=== PATIENT | female | born 1965 | race Caucasian/White ===

== ENCOUNTER → 2016-09-24 13:25 | Outpatient (CLI) | payer MEDICARE | END | disposition home or self-care (01) | LOC: D.US 13:00 | DX: D64.9 Anemia, unspecified (principal); C50.319 Malignant neoplasm of lower-inner quadrant of unspecified female breast ==

== ENCOUNTER → 2018-11-17 08:21 | Outpatient (CLI) | payer MEDICARE ==
--- NOTE | 2018-11-19 09:24 | EC ---
PATIENT:SON MATIAS DATE OF SERVICE: 11/17/18 SEX: F MEDICAL RECORD: [id number] DATE OF : 63 LOCATION:D[facility] AGE OF PATIENT: 53 ADMISSION DATE: 11/17/18 REFERRING PHYSICIAN: INTERPRETING PHYSICIAN: HARJIT HOUSER MD ECHOCARDIOGRAM REPORT ECHO CHARGES 4 ECHO COMPLETE Date: 11/17/18 CLINICAL DIAGNOSIS: MURMUR ECHOCARDIOGRAPHIC MEASUREMENTS (adult normal given) AC root (d.<3.7cm) 2.5 cm LV Septum d (<1.2 cm> 1.4 cm Valve Excursion 1.2 cm LV Septum (systole) 1.5 cm Left Atria (s.<4.0cm> 3.3 cm LVPW d(<1.2cm) 1.4 cm RV (d.<2.3cm) 3.5 cm LVPW (sytole) 1.7 cm LV diastole(<5.6CM) 4.5 cm MV E-F(>70mm/sec) cm LV systole 3.2 cm LVOT Diameter 1.8 cm MV exc.(>10mm) 1.7 cm Est.ejection fraction (50-75%) % DOPPLER: LVIT cm/sec A 84.0 cm/sec E 76.0 cm/sec LA cm/sec RVSP 18 mmHg LVOT 88 cm/sec AOP1/2T m/s Asc. Ao 109 cm/sec RVOT 53 cm/sec RA cm/sec PA 76 cm/sec AV Gradient Peak 4.78 mmHg AV Mean 2.61 mmHg AV Area 2.2 cm MV Gradient Peak 3.71 mmHg MV Mean 1.10 mmHg MV Area cm COMMENTS: Toll Line Repairer: 2 JOSH LA Medical Records Manager: 3 Dr. Beltran TAPE# PACS Pericardial Effusion N DATE OF SERVICE: 11/17/2018 Mild LVH. LV internal dimension is normal. Wall motion is normal. EF is greater than or equal to 55%. Aortic valve is tricuspid. No evidence of stenosis by Doppler interrogation. Left atrium is normal. Mitral valve shows no prolapse. Trace MR. Right-sided chambers are grossly normal. Trace TR. TRANSINT:[id number] Voice Confirmation ID: [id number] DOCUMENT ID: [id number] ECHOCARDIOGRAM REPORT [id number] SON MATIAS HARJIT HOUSER MD at 0924 CC: [id number] DICTATION DATE: 11/18/18 1009 CLINICAL DOCUMENTATION IMPROVEMENT SPECIALIST: 11/18/18 1104 DEP CLI 11/17/18 [id number] [place] [address]
--- NOTE | 2018-11-21 12:04 | ST ---
PATIENT:SON MATIAS MEDICAL RECORD: [id number] SEX: F LOCATION:[facility] ORDER #: ADMISSION DATE: 11/17/18 AGE OF PATIENT: 53 REFERRING PHYSICIAN: INTERPRETING PHYSICIAN: JANICE KIM MD DATE OF SERVICE: 11/17/2018 PROCEDURE: Nuclear stress test. INDICATION: Angina, abnormal ECG, palpitation. TECHNIQUE: She was exercised on standard Damir protocol for 8 minutes achieving greater than 85% max target heart rate response with 33 mCi of sestamibi injected at peak stress, 11 mCi used previously for rest images. FINDINGS: Gated SPECT was not performed secondary to technical difficulties. OVERALL IMPRESSION: This is a normal nuclear stress test with no evidence of inducible ischemia or previous infarction. TRANSINT:[id number] Voice Confirmation ID: [id number] DOCUMENT ID: [id number] JANICE KIM MD at 1204 CC: [id number] DICTATION DATE: 11/20/18 1152 CAR SHIFTER: 11/20/18 2302 DEP CLI 11/17/18 [id number] [place] [address]
== END | disposition home or self-care (01) ==
LOC: D.HCCARDIO 08:21
PROVIDERS: ATTEND Internal Medicine Interventional Cardiology
DX: I20.9 Angina pectoris, unspecified (principal)

== ENCOUNTER → 2019-12-19 13:27 | Outpatient (CLI) | payer MEDICARE ==
--- NOTE | ~2019-12-19 | EC ---
PATIENT:SON MATIAS DATE OF SERVICE: 12/19/19 SEX: F MEDICAL RECORD: [id number] DATE OF : 63 LOCATION:D.[facility] AGE OF PATIENT: 54 ADMISSION DATE: 12/19/19 REFERRING PHYSICIAN: INTERPRETING PHYSICIAN: HARJIT HOUSER MD ECHOCARDIOGRAM REPORT ECHO CHARGES 4 ECHO COMPLETE Date: 12/19/19 CLINICAL DIAGNOSIS: HX OF PALPITATIONS/ ASSESS EF AND VALVES ECHOCARDIOGRAPHIC MEASUREMENTS (adult normal given) AC root (d.<3.7cm) 3.0 cm LV Septum d (<1.2 cm> 1.4 cm Valve Excursion 1.7 cm LV Septum (systole) 1.6 cm Left Atria (s.<4.0cm> 3.7 cm LVPW d(<1.2cm) 1.4 cm RV (d.<2.3cm) 3.9 cm LVPW (sytole) 1.6 cm LV diastole(<5.6CM) 4.9 cm MV E-F(>70mm/sec) cm LV systole 2.7 cm LVOT Diameter 1.8 cm MV exc.(>10mm) 1.4 cm Est.ejection fraction (50-75%) % DOPPLER: LVIT cm/sec A 70.0 cm/sec E 79.0 cm/sec LA cm/sec RVSP 26 mmHg LVOT 101 cm/sec AOP1/2T m/s Asc. Ao 127 cm/sec RVOT 60 cm/sec RA cm/sec PA 77 cm/sec AV Gradient Peak 6.43 mmHg AV Mean 3.43 mmHg AV Area 2.0 cm MV Gradient Peak 3.44 mmHg MV Mean 1.32 mmHg MV Area cm COMMENTS: Cable Way Operator: 2 JOSH LA Air Pollution Engineer: 3 Dr. Beltran TAPE# PACS Pericardial Effusion N DATE OF SERVICE: Adequate 2D, color flow imaging, spectral Doppler, and M-Mode. LVH is present. LV internal dimension is normal. Wall motion is normal. EF is greater than or equal to 55%. Aortic valve is tricuspid. No evidence of stenosis by Doppler interrogation. Left atrium normal at 3.7 cm. Mitral valve shows no prolapse. Trace MR. Right-sided chambers grossly normal. Trace TR. TRANSINT:[id number] Voice Confirmation ID: [id number] DOCUMENT ID: [id number] ECHOCARDIOGRAM REPORT [id number] SON MATIAS GREGORY A MD CC: [id number] DICTATION DATE: 12/20/19 1350 MAMMOGRAPHY TECH: 12/20/192007 DEP CLI 12/19/[address] [address]
== END | disposition home or self-care (01) ==
LOC: D.HCCECHO 12-13 09:30
PROVIDERS: ATTEND Internal Medicine Interventional Cardiology
DX: R00.2 Palpitations (principal)